=== PATIENT | female | born 1950 | race Caucasian/White ===

== ENCOUNTER 2022-01-21 10:23 | Emergency (ER) | payer MEDICARE ==
[~2022-01-21] VITALS: Ht 165.1 cm; Wt 77.1 kg
[2022-01-21 10:24] VITALS: BP 141/66
[2022-01-21] MEDS ORDERED: ACET1TAB25 PO (12:24)
[2022-01-21] MEDS ORDERED: HYDROCODONE/ACETAMINOPHEN 10/325 MG TAB PO SCH (12:30)
== END 2022-01-21 12:47 | disposition home or self-care (01) ==
LOC: EDH 10:48
DX: S42.202A Unspecified fracture of upper end of left humerus, initial encounter for closed fracture (principal); M25.562 Pain in left knee; F41.9 Anxiety disorder, unspecified; Z98.890 Other specified postprocedural states; Z88.0 Allergy status to penicillin; Z88.1 Allergy status to other antibiotic agents; Z88.2 Allergy status to sulfonamides; W01.0XXA Fall on same level from slipping, tripping and stumbling without subsequent striking against object, initial encounter; Y93.89 Activity, other specified; Y92.89 Other specified places as the place of occurrence of the external cause; Y99.8 Other external cause status
CPT/HCPCS: 73030; 73060; 73562